=== PATIENT | male | born 1990 | race African-American/Black ===

== ENCOUNTER 2020-02-11 11:34 | Emergency (ER) | payer MEDICAID ==
[~2020-02-11] VITALS: Ht 185.4 cm; Wt 93.9 kg
--- NOTE | 2020-02-11 12:01 | Emergency Room Report ---
History of Present Illness General Chief Complaint: Pain Source: Patient Present Illness HPI Disclaimer: Please note that this report is being documented using [employer] technology. This can lead to erroneous entry secondary to incorrect interpretation by the dictating instrument. HPI: 29-year-old male presents for evaluation of jaw pain. Patient states he had a plate put over the ramus of the mandible on the right side after a fracture in 2009. Has not had any complications since. He was chewing some hard candy 1 week ago felt a pop over the right TMJ. Pain with opening his mouth wide. He feels like the plate might be moving. Denies swelling, redness, purulent drainage. Denies pain in the teeth. Denies malalignment. Able to eat and drink at baseline. No trauma to the mandible. PMH: Reviewed PSH: Mandible repair Allergies: Reviewed Social Hx: Reviewed COVID-19 Screening Contact w/high risk pt: No Experienced COVID-19 symptoms?: No COVID-19 Testing performed ADVERTISING INTERN: No Nursing Documentation-PMH Past Medical History: No History, Except For Review of Systems All Other Systems: negative except mentioned in HPI Physical Exam Vital Signs Date Time Temp Pulse Resp B/P (MAP) Pulse Ox O2 Delivery O2 Flow Rate FiO2 02/11/20 11:49 97.7 77 16 132/94 (107) 99 Room Air General: Awake and alert, no acute distress HEENT: NC/AT. EOMI. mandible and dentition in anatomic position. No malalignment. No step-off or tenderness over the TMJ. No tenderness over the upper or lower teeth on the right side. No parotid swelling or submandibular swelling. Uvula is midline. Able to break tongue depressor when held in the right side Resp: Normal work of breathing Skin: Intact. No abrasions, laceration or rash over the exposed skin MSK: Normal tone and bulk. Moving all extremities. No obvious deformity. Neuro: Awake and alert. Mentating appropriately Medical Decision Making Diagnostic Impression: Primary Impression: Jaw pain ER Course 29-year-old male with prior history of mandible repair presents for evaluation of TMJ pain. Differential includes was not limited to dislocation, fracture, hardware malfunction. No clinical signs of infection, parotitis, ADVERTISING INTERN, Andrez an lucio. No signs of dental fracture or infection. X-ray of the mandible was obtained showing intact hardware in anatomic position. No evidence of dislocation or fracture otherwise. Patient discharged with anti-inflammatories. Follow-up with PMD as needed. Other X-Ray Diagnostic Results Other X-Ray Diagnostic Results : X-Ray ordered: Mandible # of Views/Limited Vs Complete: 4 View Indication: Pain Interpretation: no dislocation, no soft tissue swelling, no fractures, other - Hardware intact over the right ramus. No obvious fracture Impression: No acute disease Electronically Signed by: Electronically signed by Dr. Ender Corley Last Vital Signs Date Time Temp Pulse Resp B/P (MAP) Pulse Ox O2 Delivery O2 Flow Rate FiO2 02/11/20 11:49 97.7 77 16 132/94 (107) 99 Room Air Disposition: HOME, SELF-CARE Condition: Stable Scripts Ibuprofen* (MOTRIN*) 600 Mg Tablet 600 MG ORAL Q8H PRN for FOR PAIN, #30 TAB 0 Refills Prov: Ender Corley MD 02/11/20 Referrals: NOT CHOSEN IPA/,REFERRING (PCP) Ender Corley MD Feb 11, 2020 12:01
[2020-02-11 12:02] VITALS: BP 132/94
[2020-02-11] MEDS ORDERED: IBUPROFEN600 M1 ORAL (12:43)
[2020-02-11 13:50] VITALS: BP 130/89
--- NOTE | 2020-02-11 16:14 | Diagnostic Imaging Report ---
INDICATION: Pain after injury TECHNIQUE: Multiple views of the mandibles were obtained. COMPARISON: None FINDINGS: The patient is status post prior open reduction and internal fixation of the right mandibular condyle as well as the left anterior mandibular body. No acute fracture. Temporomandibular joints appear well seated. Paranasal sinuses and mastoid air cells are well aerated. Multiple dental fillings are noted. IMPRESSION: No acute fracture or dislocation. Please note that that facial radiographs are relatively insensitive for nondisplaced acute fractures, and if there is continued clinical concern, consider further evaluation with maxillofacial CT.
== END 2020-02-11 13:50 | disposition home or self-care (01) ==
LOC: EMR 11:57
DX: R68.84 Jaw pain (principal); Z96.7 Presence of other bone and tendon implants
CPT/HCPCS: 70110; Z7502; 99283